=== PATIENT | female | born 1990 | race Caucasian/White ===

== ENCOUNTER → 2017-05-27 | Outpatient (REF) | payer OTHER, BC ==
[~2017-05-27] MED LIST: ACET50TA PO; IBUP80TA PO; PRENTAB40 PO
== END ==
LOC: M LAB REF 17:47
PROVIDERS: ATTEND Specialist
DX: Z12.4 Encounter for screening for malignant neoplasm of cervix (principal)

== ENCOUNTER 2018-09-24 18:29 | Emergency (ER) | payer OTHER, BC ==
[2018-09-24] MEDS: KETOROLAC 30 MG/ML VIAL (J1885) IV (19:45)
[2018-09-24 20:27] LABS: BASO % 0.3 % (0.0-1.0); EOS % 0.3 % (0.0-3.0); HEMATOCRIT 40.2 % (36.0-47.0); HEMOGLOBIN 13.7 g/dl (12.0-15.5); IMMATURE GRANULOCYTE % 0.3 % (0-3.0); LYMPH # 1.1 10^3/uL (1.5-4.5); LYMPH % 13.7 % (24.0-44.0); MEAN CORPUSCULAR HGB CONC 34.1 g/dl (32.0-36.5); MONO # 0.4 10^3/uL (0.0-0.8); MONO % 5.3 % (0.0-5.0); NEUTROPHILS # 6.2 10^3/uL (1.8-7.7); NEUTROPHILS % 80.1 % (36.0-66.0); PLATELET COUNT, AUTOMATED 219 10^3/uL (150-450); RED BLOOD COUNT 4.57 10^6/uL (4.00-5.40); RED CELL DISTRIBUTION WIDTH 12.2 % (11.5-14.5); WHITE BLOOD COUNT 7.7 10^3/uL (4.0-10.0)
[2018-09-24 20:31] LABS: KETONE, URINE AUTO RFX NEGATIVE (NEGATIVE); LEUKOCYTE ESTERASE UR AUTO RFX NEGATIVE (NEGATIVE); NITRITE, URINE AUTO RFX NEGATIVE (NEGATIVE); RBC, URINE AUTO RFX 2 /HPF (0-3); SPECIFIC GRAVITY UR AUTO RFX 1.003 (1.002-1.035); SQUAM EPITHELIAL CELL UR AURFX 1 /HPF (0-6); WBC, URINE AUTO RFX 1 /HPF (0-3)
[2018-09-24 20:36] LABS: CONTROL LINE UCG INT CTR LINE PRESENT; URINE PREG TEST NEGATIVE (NEGATIVE)
[2018-09-24 20:53] LABS: ALBUMIN 4.4 GM/DL (3.2-5.2); ALBUMIN/GLOBULIN RATIO 1.38 (1.00-1.93); ALKALINE PHOSPHATASE 83 U/L (45-117); ALT/SGPT 23 U/L (12-78); ANION GAP 9 MEQ/L (8-16); AST/SGOT 15 U/L (7-37); BILIRUBIN,DIRECT < 0.1 MG/DL (0.0-0.2); BILIRUBIN,TOTAL 0.3 MG/DL (0.2-1.0); BLOOD UREA NITROGEN 9 MG/DL (7-18); CALCIUM LEVEL 9.7 MG/DL (8.5-10.1); CARBON DIOXIDE LEVEL 26 MEQ/L (21-32); CHLORIDE LEVEL 105 MEQ/L (98-107); CREATININE FOR GFR 0.79 MG/DL (0.55-1.30); GLOMERULAR FILTRATION RATE > 60.0 (>60); GLUCOSE, FASTING 111 MG/DL (70-100); LIPASE 137 U/L (73-393); POTASSIUM SERUM 3.5 MEQ/L (3.5-5.1); SODIUM LEVEL 140 MEQ/L (136-145); TOTAL PROTEIN 7.6 GM/DL (6.4-8.2)
== END 2018-09-24 21:25 | disposition home or self-care (01) ==
LOC: M ED 18:29
DX: N80.9 Endometriosis, unspecified (principal); K37 Unspecified appendicitis
CPT/HCPCS: J1885

== ENCOUNTER → 2019-01-06 | Outpatient (CLI) | payer BC ==
[~2019-01-06] MED LIST changes: -ACET50TA PO; +MAPA500T2 PO; +NORCOTAB PO
--- NOTE | 2019-01-06 15:08 | REP ---
PELVIC SONOGRAM: HISTORY: History of ovarian cyst. Right lower quadrant and right lower back pain. Comparison pelvic sonography September 24, 2018 showed a 3.6 cm complex lesion in the right ovary. SONOGRAPHIC FINDINGS: The urinary bladder gomez are smooth. Transabdominal and transvaginal scanning demonstrates normal uterine dimensions measured at 7.4 x 4.6 x 4.9 cm. Endometrial echo 0.5 cm thick. No focal uterine mass is seen. A trace of physiologic fluid is seen. The right ovary measures 3.9 x 2.0 x 2.9 cm. It contains a 2.2 x 1.8 x 2.1 cm involuting cyst. Its Doppler flow is normal. Resistive index is normal at 0.41 by Doppler. The left ovarian dimensions are 3.3 x 1.5 x 3.1 cm. There is also an involuting appearing cyst in the left ovary 1.1 x 0.8 x 0.9 cm. Its Doppler flow is normal, resistive index 0.45. IMPRESSION: No significant abnormality. Normal follicle cysts in each ovary. Electronically Signed by Lexx Bhat MD 01/06/2019 05:22 P
== END ==
LOC: M RAD 13:38
PROVIDERS: ATTEND Physician Assistant
DX: R10.813 Right lower quadrant abdominal tenderness (principal)

== ENCOUNTER → 2019-01-06 | Outpatient (REF) | payer BC ==
[2019-01-06 13:24] LABS: BASO % 0.6 % (0.0-1.0); EOS % 0.6 % (0.0-3.0); HEMATOCRIT 42.3 % (36.0-47.0); HEMOGLOBIN 14.2 g/dl (12.0-15.5); LYMPH # 1.2 10^3/uL (1.5-4.5); LYMPH % 25.2 % (24.0-44.0); MEAN CORPUSCULAR HEMOGLOBIN 29.4 pg (27.0-33.0); MEAN CORPUSCULAR HGB CONC 33.6 g/dl (32.0-36.5); MEAN CORPUSCULAR VOLUME 87.6 fl (80.0-96.0); MONO # 0.4 10^3/uL (0.0-0.8); NEUTROPHILS # 3.1 10^3/uL (1.8-7.7); NEUTROPHILS % 65.4 % (36.0-66.0); PLATELET COUNT, AUTOMATED 198 10^3/uL (150-450); RED BLOOD COUNT 4.83 10^6/uL (4.00-5.40); WHITE BLOOD COUNT 4.7 10^3/uL (4.0-10.0)
[2019-01-06 14:06] LABS: ALBUMIN 4.5 GM/DL (3.2-5.2); ALT/SGPT 20 U/L (12-78); BILIRUBIN,TOTAL 0.6 MG/DL (0.2-1.0); BLOOD UREA NITROGEN 8 MG/DL (7-18); CALCIUM LEVEL 9.2 MG/DL (8.5-10.1); CARBON DIOXIDE LEVEL 26 MEQ/L (21-32); CHLORIDE LEVEL 108 MEQ/L (98-107); CHOLESTEROL LEVEL 192 MG/DL (<200); CHOLESTEROL RISK RATIO 2.704 (<5); CREATININE FOR GFR 0.76 MG/DL (0.55-1.30); GLOMERULAR FILTRATION RATE > 60.0 (>60); GLUCOSE, FASTING 97 MG/DL (70-100); HDL CHOLESTEROL 71 MG/DL (>40); LDL CHOLESTEROL 109 MG/DL (<100); NON-HDL-C 121 MG/DL; POTASSIUM SERUM 4.4 MEQ/L (3.5-5.1); SODIUM LEVEL 140 MEQ/L (136-145); TOTAL PROTEIN 7.4 GM/DL (6.4-8.2); TRIGLYCERIDES LEVEL 59 MG/DL (<150)
== END ==
LOC: M LAB REF 12:35
PROVIDERS: ATTEND Physician Assistant
DX: R10.813 Right lower quadrant abdominal tenderness (principal)

== ENCOUNTER 2019-12-02 08:50 | Day surgery (SDC) | payer BC ==
[~2019-12-02] VITALS: Ht 160 cm; Wt 52.3 kg
[~2019-12-02 08:50] MED LIST changes: +HYDR-3715 PO; -NORCOTAB PO
[2019-12-02 09:48] LABS: BASO % 0.2 % (0.0-1.0); EOS % 0.4 % (0.0-3.0); HEMATOCRIT 38.9 % (36.0-47.0); LYMPH # 0.7 10^3/uL (1.5-5.0); LYMPH % 8.3 % (24.0-44.0); MEAN CORPUSCULAR HEMOGLOBIN 29.7 pg (27.0-33.0); MEAN CORPUSCULAR HGB CONC 33.4 g/dl (32.0-36.5); MEAN CORPUSCULAR VOLUME 88.8 fl (80.0-96.0); MONO # 0.6 10^3/uL (0.0-0.8); MONO % 6.7 % (0.0-5.0); PLATELET COUNT, AUTOMATED 192 10^3/uL (150-450); RED BLOOD COUNT 4.38 10^6/uL (4.00-5.40); WHITE BLOOD COUNT 8.3 10^3/uL (4.0-10.0)
[2019-12-02 10:29] LABS: BLOOD UREA NITROGEN 7 MG/DL (7-18); CALCIUM LEVEL 9.3 MG/DL (8.5-10.1); CARBON DIOXIDE LEVEL 28 MEQ/L (21-32); CHLORIDE LEVEL 107 MEQ/L (98-107); CREATININE FOR GFR 0.68 MG/DL (0.55-1.30); GLOMERULAR FILTRATION RATE > 60.0 (>60); GLUCOSE, FASTING 106 MG/DL (70-100); HCG, SERUM QUANTITATIVE 25862 MIU/ML; POTASSIUM SERUM 3.6 MEQ/L (3.5-5.1); SODIUM LEVEL 141 MEQ/L (136-145)
[2019-12-02] MEDS ORDERED: NS 1,000 ML IV ONE (10:45)
--- NOTE | 2019-12-02 10:53 | REP ---
Clinical: Positive test with pelvic pain. Technique: Transabdominal and transvaginal first trimester obstetrical ultrasound with color Doppler evaluation of the ovaries. Findings: Anteverted uterus measures 11.6 x 4.6 x 5.7 cm. Endometrial complex measures 8.3 mm thickness without decidual reaction or intrauterine identified. Free fluid identified in the pelvis along with a 2.6 x 2.2 x 2.4 cm thick-walled hyperechoic mass with cystic central component separate from the ovaries and concerning for ectopic . Bilateral ovaries demonstrate normal vascularity without torsion. The right ovary is normal and measures 2.8 x 1.8 x 2.7 cm (RI 0.64) . Left ovary measures 3.5 x 2.9 x 3.0 cm (RI 0.49) and includes 2.0 x 1.7 x 1.6 cm physiologic cyst. Impression: 1. No intrauterine identified. 2. 2.6 cm thick-walled mass in the pelvis with central cystic component and surrounding free fluid concerning for ectopic . 3. Normal bilateral ovaries. Electronically Signed by Melvin Robles MD 12/02/2019 10:44 A
[2019-12-02 11:30] LABS: INR 1.12; PROTHROMBIN TIME 14.1 SECONDS (11.8-14.0)
[2019-12-02] MEDS ORDERED: LIDOCAINE 2% INJ 100 MG/5 ML SDV (FOR ANES.) As Ordered ONE (11:47)
[2019-12-02] MEDS ORDERED: propofoL 200 MG/20 ML VIAL As Ordered ONE (11:47)
[2019-12-02] MEDS ORDERED: ROCURONIUM BROMIDE 50 MG/5 ML VIAL As Ordered ONE (11:47)
[2019-12-02] MEDS ORDERED: ONDANSETRON 4MG/2ML VIAL (J2405) As Ordered ONE (11:47)
[2019-12-02] MEDS ORDERED: dexameTHASONE 4 MG/ML 1ML VIAL (J1100) As Ordered ONE (11:47)
[2019-12-02] MEDS ORDERED: SUGAMMADEX SODIUM 500 MG/5 ML VIAL (BRIDION) As Ordered ONE (11:48)
[2019-12-02] MEDS ORDERED: MIDAZOLAM INJ 2 MG/2 ML VIAL (J2250) As Ordered ONE (11:48)
[2019-12-02] MEDS ORDERED: fentaNYL 100 MCG/2 ML INJECTION (J3010) As Ordered ONE (11:48)
[2019-12-02] MEDS ORDERED: KETOROLAC 60 MG/2 ML VIAL (J1885) As Ordered ONE (11:49)
[2019-12-02] MEDS ORDERED: BUPIVACAINE HCL 0.25% 30 ML VIAL As Ordered ONE (11:51)
[2019-12-02] MEDS ORDERED: METOCLOPRAMIDE INJ 10MG/2ML VIAL (J2765) As Ordered ONE (13:39)
[2019-12-02] MEDS ORDERED: oxyCODONE 5MG TAB PO PRN (14:00)
[2019-12-02] MEDS ORDERED: LR 1,000 ML IV SCH ×2 (14:00)
[2019-12-02] MEDS ORDERED: PERCOCET 5MG/325MG TAB PO PRN (14:00)
[2019-12-02] MEDS ORDERED: HYDROMORPHONE HCL 0.5 MG/ 0.5 ML SYRINGE (J1170 PER 1) IV PRN (14:00)
[2019-12-02] MEDS ORDERED: fentaNYL 100 MCG/2 ML INJECTION (J3010) IV PRN (14:00)
[2019-12-02] MEDS ORDERED: ONDANSETRON 4MG/2ML VIAL (J2405) IV PRN (14:00)
[2019-12-02 15:15] VITALS: BP 119/70
[2019-12-02] MEDS ORDERED: OXYC1TAB23 PO (15:30)
[2019-12-02] MEDS ORDERED: IBUP-1022 PO (15:31)
--- NOTE | 2019-12-03 13:52 | RO ---
DATE OF PROCEDURE: 12/02/2019 PREPROCEDURE DIAGNOSIS: Right ectopic . POSTPROCEDURE DIAGNOSIS: Right ectopic . PROCEDURE: Laparoscopic right salpingectomy. SURGEON: Dr. Mike Jay LOCKSMITH HELPER: ANESTHESIA: General endotracheal. ESTIMATED BLOOD LOSS: 350 mL. FINDINGS: 3-4 cm ectopic in the ampullary portion of the right fallopian tube. Evidence of tubal rupture on the antimesenteric side in the ampullary portion of the tube. Bleeding out of the fimbria as well on the right tube. She had a normal appearing left fallopian tube and ovary. Normal appearing right ovary. Uterus had a 3-4 anterior subserosal fibroid. Normal upper abdomen. Normal appendix. DESCRIPTION OF PROCEDURE: The patient was taken to the operating room where general endotracheal anesthesia was induced. She was prepped and draped in sterile fashion in the dorsal lithotomy position. A Topete catheter was placed. A Hulka uterine tenaculum was placed as a manipulator. A periumbilical incision was made with a scalpel. A Veress needle was placed through this incision while tenting up on the skin of the abdomen. Intra-abdominal location of the Veress needle was assessed by the use of a saline filled syringe. A pneumoperitoneum was created. The Veress needle was removed. An 11 mm trocar using Visiport was inserted through this incision. Two 5 mm suprapubic ports were placed under direct visualization. Suction special procedure technologist device was placed to evacuate blood from the pelvis and posterior cul-de-sac. Grasping instrument was used to elevate the fallopian tube. The harmonic scalpel was used to create an incision in the antimesenteric side to the right fallopian tube near the ectopic site. The was milked out of the tube and was removed in its entirety. The ectopic tissue was removed through the laparoscopic ports. The right fallopian tube incision site was observed and noted to be bleeding. Several areas along the serosa of the tube were coagulated with harmonic scalpel. Still there was persistent bleeding. There was also still persistent bleeding noted coming from the fimbriated end of the tube. The bleeding was not heavy, however, it was enough to create concern. Decision was made to remove the tube due to persistent bleeding. The tube was grasped and elevated. The harmonic scalpel was used to coagulate and incise broad ligament attachments to the tube. The tube was excised near its origin. The tube was removed through the suprapubic port. Good hemostasis was noted. The pelvis was irrigated. The pneumoperitoneum was released. All instruments were removed. The fascia at the umbilical port was closed with interrupted suture of #0 Vicryl. The skin was closed with #4-0 Monocryl subcuticular sutures. Sponge, instrument and needle counts were correct. The patient was extubated and went to the recovery room in stable condition.
== END 2019-12-02 15:55 | disposition home or self-care (01) ==
LOC: M ED 08:50 → M SDC 08:51
PROVIDERS: ATTEND Specialist
DX: O00.101 Right tubal pregnancy without intrauterine pregnancy (principal)
CPT/HCPCS: 36415; 59151; 76801; 76817; 80048; 81001; 84702; 85025; 85610; 85730; 86850; 86900; 86901; 88305; 93976; 96360; 99284; J1100; J1885; J2250; J2405; J3010